=== PATIENT | male | born 1990 | race Two or more races ===

== ENCOUNTER 2024-03-21 14:14 | Emergency (ER) | payer OTHER, SELFPAY ==
[~2024-03-21] VITALS: Ht 175.3 cm; Wt 79.5 kg
[2024-03-21 14:22] VITALS: BP 136/88; PULSE 120; RESP 18; TEMP 98.7; O2SAT 98
[2024-03-21] MEDS: IBUPROFEN 800 MG TABLET PO ONE (15:56)
[2024-03-21] MEDS ORDERED: IBUP-1492 PO (16:01)
== END 2024-03-21 16:19 | disposition home or self-care (01) ==
LOC: EMS 14:14
DX: M79.641 Pain in right hand (principal)
CPT/HCPCS: 99283; 99284

== ENCOUNTER 2024-05-27 17:19 | Emergency (ER) | payer OTHER ==
[~2024-05-27] VITALS: Ht 175.3 cm; Wt 79.0 kg
[~2024-05-27 17:19] MED LIST: IBUP-1492 PO
[2024-05-27 17:20] VITALS: TEMP 98.1
[2024-05-27 17:50] LABS: BASOPHILS % (AUTO) 1.2 % (0.0-2.0); EOSINOPHILS % (AUTO) 0.2 % (1.0-6.0); HEMATOCRIT 41.2 % (41-53); HEMOGLOBIN 12.8 g/dL (13.5-17.5); LYMPHOCYTES # (AUTO) 2.1 K/uL (1.0-4.8); LYMPHOCYTES % (AUTO) 11.6 % (22.0-44.0); MEAN CORPUSCULAR HEMOGLOBIN 20.8 pg (26.0-34.0); MEAN CORPUSCULAR VOLUME 67 fL (80-100); MONOCYTES # (AUTO) 1.3 K/uL (0.1-1.0); MONOCYTES % (AUTO) 7.2 % (2.0-9.0); NEUTROPHILS # (AUTO) 14.4 K/uL (1.8-7.7); NEUTROPHILS % (AUTO) 79.8 % (40.0-70.0); PLATELET COUNT (AUTO) 189 K/uL (150-450); RED BLOOD CELL COUNT(AUTO) 6.14 MIL/uL (4.50-5.90); RED CELL DISTRIBUTION WIDTH 16.7 % (11.5-14.5)
[2024-05-27 18:03] LABS: ALBUMIN 4.1 g/dL (3.4-5.0); BILIRUBIN,DIRECT 0.4 mg/dL (0.00-0.20); BILIRUBIN,TOTAL 1.8 mg/dL (0.1-1.0); TOTAL PROTEIN, SERUM 9.2 g/dL (6.4-8.2)
[2024-05-27 18:05] LABS: ANION GAP 8 mmol/L (8-16); CALCIUM, TOTAL 10.2 mg/dL (8.8-10.5); CARBON DIOXIDE 28 mmol/L (22-29); CHLORIDE 100 mmol/L (98-107); CREATININE 1.01 mg/dL (0.60-1.30); GLOMERULAR FILTR. RATE CALC > 60 mL/min (>60); GLUCOSE,RANDOM 118 mg/dL (70-110); LIPASE 27 U/L (16-77); POTASSIUM 3.8 mmol/L (3.5-5.1); SODIUM SERUM 136 mmol/L (136-145); UREA NITROGEN, BLOOD 12 mg/dL (7-18)
[2024-05-27 18:15] LABS: RBC MORPHOLOGY COMMENT ABNORMAL RBC MORPH
[2024-05-27 18:38] LABS: APPEARANCE,URINE CLEAR (CLEAR); BILIRUBIN,URINE NEGATIVE (NEGATIVE); COLOR,URINE DARK YELLOW (YELLOW); GLUCOSE, URINE (UA) NEGATIVE (NEGATIVE); KETONES,URINE NEGATIVE (NEGATIVE); LEUKOCYTE ESTERASE ,URINE NEGATIVE (NEGATIVE); NITRATE,URINE NEGATIVE (NEGATIVE); OCCULT BLOOD,URINE TRACE (NEGATIVE); PROTEIN,URINE 100-200,SEE CONFIRM mg/dL (NEGATIVE); SPECIFIC GRAVITIY, URINE 1.035 (1.003-1.030)
[2024-05-27 18:51] LABS: BACTERIA,URINE None Seen /HPF (None Seen); RBC,URINE 0-2 /HPF (0-2); SQUAMOUS EPITHELIAL CELL,UR Rare /LPF (None Seen); SULFOSALICYLIC ACID,URINE 1+ (Negative); WBC,URINE None Seen /HPF (0-5)
[2024-05-27] MEDS ORDERED: SODIUM CHLORIDE 0.9% 100 ML ONE (18:59)
[2024-05-27] MEDS ORDERED: IOHEXOL 350 MG/ML 100 ML VIAL ONE (18:59)
[2024-05-27 20:30] VITALS: BP 138/88; PULSE 105; RESP 18; O2SAT 96
[2024-05-27] MEDS ORDERED: METR500 PO (21:24)
[2024-05-27] MEDS ORDERED: LEVO-72 PO (21:24)
[2024-05-27] MEDS: MetroNIDAZOLE 500 MG/NACL 100 ML IV ONE (21:27)
[2024-05-27] MEDS: LEVOFLOXACIN 500 MG/D5% WATER 100 ML IV ONE (21:27)
== END 2024-05-27 22:25 | disposition home or self-care (01) ==
LOC: EMS 17:19
DX: K52.9 Noninfective gastroenteritis and colitis, unspecified (principal); K62.89 Other specified diseases of anus and rectum
CPT/HCPCS: 99285; 74177; 96365; 80048; 80076; 81001; 83690; 85025; 36415; 96368; Q9967; J1956; J3490; J7050; 81002